=== PATIENT | male | born 1970 | race Caucasian/White ===

== ENCOUNTER 2019-05-03 07:30 | Day surgery (SDC) | payer OTHER ==
[~2019-05-03] VITALS: Ht 182.9 cm; Wt 99.8 kg
[2019-05-03 08:06] LABS: BASOPHILS 0.8 % (0-2); EOSINOPHILS 3.9 % (0-7); HEMATOCRIT 31.1 % (42.0-54.0); HEMOGLOBIN 10.8 g/dL (13.5-17.5); LYMPHOCYTES 25.1 % (15-50); MCH 32.1 pg (26.0-34.0); MCHC 34.7 g/dL (31.0-37.0); MCV 92.6 fL (80.0-100.0); MEAN PLATELET VOLUME 9.9 fL (7.4-10.4); NEUTROPHILS 55.2 % (40-80); PLATELET COUNT 74 10x3/uL (130-400); RBC 3.36 10x6/uL (4.20-6.10); WBC 3.6 10x3/uL (4.8-10.8)
[2019-05-03 08:21] LABS: INR 1.21 (0.85-1.17); PROTIME 14.8 SECONDS (11.6-15.0)
[2019-05-03 08:26] LABS: ANION GAP 18.4 mmol/L (8-16); CALCIUM 9.2 mg/dL (8.5-10.1); CARBON DIOXIDE 23.6 mmol/L (21.0-32.0); CREATININE - SERUM 5.8 mg/dL (0.6-1.3)
[2019-05-03] MEDS ORDERED: FOLIC ACID1 MG PO (08:31)
[2019-05-03] MEDS ORDERED: OMEPRAZOLE40 MG PO (08:32)
[2019-05-03] MEDS ORDERED: RENVELA800 MG PO (08:35)
[2019-05-03] MEDS ORDERED: GENERLAC (08:35)
[2019-05-03] MEDS ORDERED: ATARAX 25 MG TA25 MG PO (08:36)
[2019-05-03] MEDS ORDERED: PROPRANOLOL HCL20 MG PO (08:37)
[2019-05-03] MEDS ORDERED: CARAFATE1 G PO (08:37)
[2019-05-03] MEDS ORDERED: VITAMIN B-1100 M1 PO (08:39)
[2019-05-03] MEDS ORDERED: XIFAXAN550 MG PO (08:39)
[2019-05-03] MEDS ORDERED: SLOW RELEASE I160 MG PO (08:40)
[2019-05-03 08:55] VITALS: Ht 182.9 cm; Wt 99.8 kg
== END 2019-05-03 14:10 | disposition home or self-care (01) ==
LOC: D.OPS 07:30
PROVIDERS: Surgery; ATTEND Internal Medicine Nephrology
DX: N18.6 End stage renal disease (principal); Z01.812 Encounter for preprocedural laboratory examination